=== PATIENT | female | born 1985 | race African-American/Black ===

== ENCOUNTER 2021-09-30 11:01 | Emergency (ER) | payer MEDICAID, OTHER ==
[~2021-09-30] VITALS: Ht 165.1 cm; Wt 75.0 kg
[2021-09-30 11:12] VITALS: BP 108/71
[2021-09-30] MEDS ORDERED: FOLI-130 PO (11:18)
[2021-09-30] MEDS ORDERED: AMOX500C2 PO (14:09)
[2021-09-30] MEDS ORDERED: AMOXICILLIN TRIHYDRATE 250 MG CAPSULE PO ONE (14:15)
== END 2021-09-30 14:47 | disposition home or self-care (01) ==
LOC: EMS 11:01
DX: O26.893 Other specified pregnancy related conditions, third trimester (principal); R22.0 Localized swelling, mass and lump, head; R51.9 Headache, unspecified; Z79.899 Other long term (current) drug therapy; Z3A.28 28 weeks gestation of pregnancy
CPT/HCPCS: 99283